=== PATIENT | female | born 1980 | race Caucasian/White ===

== ENCOUNTER 2023-02-05 13:04 | Emergency (ER) | payer OTHER, SELFPAY ==
[2023-02-05 13:18] VITALS: BP 147/99; PULSE 109; RESP 18; TEMP 36.7; O2SAT 98; BMI 32.9
--- NOTE | 2023-02-05 15:11 | ED_ITS ---
HPI - Dental/Oral <Danielle Campbell PA-C - Last Filed: 02/05/23 16:27> General Chief complaint: Dental/Oral Stated complaint: lt side of face swelling/pain Time Seen by Provider: 02/05/23 13:52 Source: patient Mode of arrival: Ambulatory History of Present Illness HPI Narrative: 42-year-old female presents to the ED with 3 days of right lower dental pain. Patient states that the pain started in her rear most left lower molar tooth, and the pain has worsened since then. Patient states that she has an appointment with a dentist, however they will only be able to see her next week. Patient endorses poor dentition, endorses that she might have a crack in that tooth. Patient denies fever, chills, nausea, vomiting. Patient denies dysphagia and is managing secretions well. Related Data Previous Rx's Medication Instructions Recorded amoxicillin 500 mg-potassium 1 tab PO TID 10 days #30 tabs 02/05/23 clavulanate 125 mg tablet (Augmentin) oxycodone-acetaminophen 5 mg-325 1 tab PO Q8H PRN pain #7 tabs 02/05/23 mg tablet (Percocet) Review of Systems <Danielle Campbell PA-C - Last Filed: 02/05/23 16:27> Constitutional Constitutional: Denies chills, Denies fatigue, Denies fever(s), Denies frequent falls, Denies lethargy and Denies weakness Eyes Eyes: Denies change in vision, Denies eye discharge, Denies irritation and Denies loss of vision ENT Ears, Nose, Mouth, and Throat: Denies change in voice, Reports dental pain, Denies dizziness, Denies neck pain, Denies sore throat and Denies throat swelling Cardiovascular Cardiovascular: Denies chest pain, Denies irregular heart rhythm, Denies lightheadedness, Denies palpitations, Denies dyspnea, Denies dyspnea on exertion and Denies orthopnea Respiratory Respiratory: Denies cough, Denies dyspnea, Denies dyspnea on exertion and Denies wheezing Gastrointestinal Gastrointestinal: Denies abdominal pain, Denies change in bowel habits, Denies diarrhea, Denies nausea and Denies vomiting Musculoskeletal Musculoskeletal: Denies neck pain and Denies numbness Integumentary/Breasts Skin/Breast: Denies pruritus, Denies erythema, Denies rash and Denies wounds Neurologic Neurologic: Denies behavioral changes, Denies confusion, Denies dizziness, Denies frequent falls, Denies loss of vision, Denies numbness and Denies weakness Psychiatric Psychiatric: Denies anxiety, Denies behavioral changes, Denies confusion, Denies depression, Denies homicidal ideation and Denies suicidal ideation Endocrine Endocrine: Denies fatigue, Denies flushing and Denies palpitations Hematologic/Lymphatic Hematologic/Lymphatic: Denies easy bruising Allergic/Immunologic Allergic/Immunologic: Denies urticaria, Denies throat swelling and Denies wheezing Patient History <Danielle Campbell PA-C - Last Filed: 02/05/23 16:27> Social History Smoking Status: Current every day smoker Smoking Status: Current every day smoker tobacco type: cigarettes alcohol intake frequency: other Substance Use Type: does not use Exam <Danielle Campbell PA-C - Last Filed: 02/05/23 16:27> Narrative Exam Narrative: Const General:?cooperative, healthy appearing and comfortable [facility] Head:?normal to inspection Ears:?hearing grossly normal bilaterally Nose:?external nose normal Face and sinus:?normal facial exam and sinuses nontender. Left-sided lower jaw swelling noted. Mouth:?oral mucosae normal; tenderness to palpation of left lower molar. No purulence or discharge noted. Patient managing secretions well. Throat:?posterior oropharynx normal Eyes General:?appearance normal, both eyes and all related structures Neck Neck:?normal visual inspection and no lymphadenopathy noted Resp Effort & Inspection:?normal respiratory effort Auscultation:?clear to auscultation bilaterally Cardio Rate:?regular rate Rhythm:?regular rhythm Neuro General:?patient alert, patient awake and patient oriented x3 Initial Vital Signs Initial Vital Signs: Vital Signs Temperature 98.0 F 02/05/23 13:18 Pulse Rate 109 H 02/05/23 13:18 Respiratory Rate 18 02/05/23 13:18 Blood Pressure 147/99 H 02/05/23 13:18 Pulse Oximetry 98 02/05/23 13:18 Oxygen Delivery Method Room Air 02/05/23 13:18 <Mi Rivas MD - Last Filed: 02/05/23 18:44> Initial Vital Signs Initial Vital Signs: Vital Signs Temperature 98.0 F 02/05/23 13:18 Pulse Rate 109 H 02/05/23 13:18 Respiratory Rate 18 02/05/23 13:18 Blood Pressure 147/99 H 02/05/23 13:18 Pulse Oximetry 98 02/05/23 13:18 Oxygen Delivery Method Room Air 02/05/23 13:18 Course <Danielle Campbell PA-C - Last Filed: 02/05/23 16:27> Vital Signs Vital signs: Vital Signs - 8 hr 02/05/23 13:18 02/05/23 15:14 Temperature 98.0 F Pulse Rate 109 H 90 Respiratory Rate 18 Blood Pressure 147/99 H 147/99 H Pulse Oximetry 98 99 Oxygen Delivery Method Room Air Room Air <Mi Rivas MD - Last Filed: 02/05/23 18:44> Vital Signs Vital signs: Vital Signs - 8 hr 02/05/23 13:18 02/05/23 15:14 Temperature 98.0 F Pulse Rate 109 H 90 Respiratory Rate 18 Blood Pressure 147/99 H 147/99 H Pulse Oximetry 98 99 Oxygen Delivery Method Room Air Room Air MDM - Dental/Oral <Danielle Campbell PA-C - Last Filed: 02/05/23 16:27> MDM Narrative Medical decision making narrative: 42-year-old female presents to the ED with 3 days of right lower dental pain. Concern for cracked tooth versus dental caries versus dental abscess versus other. Will start patient on Augmentin. Will control pain with a short course of Percocet. Patient has an appointment scheduled to follow-up with her dent ist. ED return precautions were discussed with patient. Patient verbalized understanding. Medical records reviewed: Yes Discharge Plan Departure Patient Disposition: Home Clinical Impression: Toothache Instructions: DI for Dental Pain Activity Restrictions/Additional Instructions: You were evaluated in the ED today for left-sided tooth pain. Your symptoms could be due 1 of several conditions including a cracked tooth, infection or dental caries. You are being started on antibiotics. Please take those as prescribed. You were also being prescribed some pain medication to take at night. This pain medication will make you sleepy, therefore please do not take it if you are going to be driving or operating machinery. Please keep the appointment with your dentist that you have for next week. Return to the ED if you have worsening symptoms, fever, chills. Prescriptions: New oxycodone-acetaminophen [Percocet] 5-325 mg tablet 1 tab PO Q8H PRN (Reason: pain) Qty: 7 0RF amoxicillin-pot clavulanate [Augmentin] 500-125 mg tablet 1 tab PO TID 10 Days Qty: 30 0RF Stand Alone Forms: Patient Portal/API ED Sign-out <Mi Rivas MD - Last Filed: 02/05/23 18:44> Cosign ED Attending Cosignature Attestation: I did not see this patient. I was available all times for consultation.
[2023-02-05 15:14] VITALS: BP 147/99; PULSE 90; O2SAT 99
== END 2023-02-05 15:14 | disposition home or self-care (01) ==
PROVIDERS: Emergency Provider Student in an Organized Health Care Education/Training Program
DX: K08.89 Other specified disorders of teeth and supporting structures (principal)
CPT/HCPCS: 99281